=== PATIENT | male | born 1945 | race Caucasian/White ===

== ENCOUNTER 2022-05-20 05:54 | Emergency (ER) | payer MEDICARE, BC ==
[2022-05-20 07:01] LABS: ESTIMATED GFR 62 mL/min (>60)
[2022-05-20 07:16] VITALS: BP 137/67; PULSE 71
== END 2022-05-20 08:50 | disposition home or self-care (01) ==
LOC: FB.ED 05:54
DX: N30.01 Acute cystitis with hematuria (principal); Z88.1 Allergy status to other antibiotic agents; Z79.82 Long term (current) use of aspirin; Z79.899 Other long term (current) drug therapy
CPT/HCPCS: 36415; 51702; 80053; 81001; 83605; 85025; 87086; 87088; 87186; 99282; 99284

== ENCOUNTER 2022-05-21 22:31 | Emergency (ER) | payer MEDICARE, BC ==
[2022-05-22 03:20] VITALS: BP 138/70; PULSE 65
== END 2022-05-21 23:30 | disposition home or self-care (01) ==
LOC: FB.ED 22:31
DX: N40.1 Benign prostatic hyperplasia with lower urinary tract symptoms (principal); N13.8 Other obstructive and reflux uropathy; Z88.1 Allergy status to other antibiotic agents; Z79.899 Other long term (current) drug therapy; Z79.82 Long term (current) use of aspirin
CPT/HCPCS: 99281; 99283

== ENCOUNTER 2022-05-22 03:54 | Emergency (ER) | payer MEDICARE, BC ==
[2022-05-22] MEDS ORDERED: Lidocaine 2% HCl 6 ML Jel STA (04:15)
[2022-05-22 07:09] VITALS: BP 134/63; PULSE 71
== END 2022-05-22 05:25 | disposition home or self-care (01) ==
LOC: FB.ED 03:54
DX: N40.1 Benign prostatic hyperplasia with lower urinary tract symptoms (principal); Z79.82 Long term (current) use of aspirin; Z79.899 Other long term (current) drug therapy; Z88.1 Allergy status to other antibiotic agents
CPT/HCPCS: 51702; 81001; 99285; A9270-GY